=== PATIENT | male | born 1945 | race Caucasian/White ===

== ENCOUNTER 2019-12-07 08:03 | Emergency (ER) | payer BC, MEDICARE ==
[2019-12-07 08:21] VITALS: BP 101/66; PULSE 115
[2019-12-07] MEDS ORDERED: Sodium Chloride 0.9% 10 ML Syringe FLUSH PRN (09:35)
--- NOTE | 2019-12-07 09:35 | EDM.PDOC ---
ED HPI GENERAL MEDICAL PROBLEM - General Chief Complaint: Gastrointestinal Problem Stated Complaint: LOW BP Time Seen by Provider: 12/07/19 09:27 Source of Information: Reports: Patient, Family, RN Notes Reviewed History Limitations: Reports: No Limitations - History of Present Illness INITIAL COMMENTS - FREE TEXT/NARRATIVE: 74-year-old gentleman presents emergency department a complaint of black tarry stools, he is only had one event of black tarry stools this morning felt very lightheaded this morning systolic blood pressure was in the 70s, and he did have a couple events of low blood sugar over the last couple of days had a syncopal event yesterday states he did not injure himself. Has had a colonoscopy a couple years ago no EGD - Related Data Allergies Allergy/AdvReac Type Severity Reaction Status Date / Time Penicillins Allergy Cannot Verified 11/08/15 07:50 Remember Home Meds: Home Meds Lisinopril 20 mg PO DAILY 08/04/15 [History] metFORMIN [Glucophage] 1,000 mg PO DAILY 08/04/15 [History] tadalafiL [Cialis] 5 mg PO DAILY PRN 08/04/15 [History] Past Medical History HEENT History: Reports: Glaucoma, Hard of Hearing, Impaired Vision, Sinusitis Cardiovascular History: Reports: Hypertension Gastrointestinal History: Reports: GERD Genitourinary History: Reports: Other (See Below) Other Genitourinary History: Erectile dysfunction Musculoskeletal History: Reports: Back Pain, Chronic, Fracture, Gout Neurological History: Reports: Concussion Endocrine/Metabolic History: Reports: Diabetes, Type II, Obesity/BMI 30+ - Infectious Disease History Infectious Disease History: Reports: Chicken Pox, Measles, Mumps - Past Surgical History HEENT Surgical History: Reports: Naso-Sinus Surgery GI Surgical History: Reports: Colonoscopy Social & Family History - Tobacco Use Smoking Status *Q: Never Smoker - Caffeine Use Caffeine Use: Reports: Coffee - Recreational Drug Use Recreational Drug Use: No ED ROS GENERAL - Review of Systems Review Of Systems: See Below Constitutional: Reports: Weakness HEENT: Reports: No Symptoms Respiratory: Reports: No Symptoms Cardiovascular: Reports: Syncope GI/Abdominal: Reports: Black Stool : Reports: No Symptoms Musculoskeletal: Reports: No Symptoms ED EXAM, GI/ABD - Physical Exam Exam: See Below Exam Limited By: No Limitations General Appearance: Alert, WD/WN, No Apparent Distress Respiratory/Chest: No Respiratory Distress, Lungs Clear, Normal Breath Sounds, No Accessory Muscle Use, Chest Non-Tender Cardiovascular: Regular Rate, Rhythm, No Murmur GI/Abdominal Exam: Soft, Non-Tender Course - Vital Signs Last Recorded V/S: Last Vital Signs Temp 97.2 F 12/07/19 08:17 Pulse 115 H 12/07/19 08:17 Resp 20 12/07/19 08:17 BP 101/66 12/07/19 08:17 Pulse Ox 95 12/07/19 08:17 - Orders/Labs/Meds Orders: Active Orders 24 hr Category Date Time Status Peripheral IV Care [RC] . DIRECTED Care 12/07/19 09:35 Active Lactated Ringers [Ringers, Lactated] 1,000 ml Med 12/07/19 09:45 Active IV ASDIRECTED Sodium Chloride 0.9% [Saline Flush] Med 12/07/19 09:35 Active 10 ml FLUSH ASDIRECTED PRN Peripheral IV Insertion Adult [OM.PC] Urgent Oth 12/07/19 09:35 Ordered Medication Orders Lactated Ringer's (Ringers, Lactated) 1,000 mls @ 999 mls/hr IV ASDIRECTED MAGALY Last Admin: 12/07/19 09:55 Dose: 999 mls/hr Sodium Chloride (Saline Flush) 10 ml FLUSH ASDIRECTED PRN PRN Reason: Keep Vein Open Last Admin: 12/07/19 10:04 Dose: 10 ml Labs: Laboratory Tests 12/07/19 12/07/19 12/07/19 Range/Units 09:57 09:57 09:57 WBC 23.5 H (4.5-11.0) K/uL RBC 4.19 L (4.30-5.90) M/uL Hgb 13.0 D (12.0-15.0) g/dL Hct 39.3 L (40.0-54.0) % MCV 94 (80-98) fL MCH 31 (27-31) pg MCHC 33 (32-36) % Plt Count 125 L (150-400) K/uL Add Manual Diff Yes Neutrophils % (Manual) 50 (36-66) % Band Neutrophils % 41 H (5-11) % Lymphocytes % (Manual) 6 L (24-44) % Monocytes % (Manual) 2 (2-6) % Metamyelocytes % 1 % Sodium 137 L (140-148) mmol/L Potassium 5.5 H (3.6-5.2) mmol/L Chloride 101 (100-108) mmol/L Carbon Dioxide 24 (21-32) mmol/L Anion Gap 17.5 H (5.0-14.0) mmol/L BUN 49 H D (7-18) mg/dL Creatinine 3.2 H D (0.8-1.3) mg/dL Est Cr Clr Drug Dosing 24.21 mL/min Estimated GFR (MDRD) 19 L (>60) Glucose 191 H (74-106) mg/dL Lactic Acid 5.9 H (0.4-2.0) mmol/L Calcium 9.0 (8.5-10.1) mg/dL Total Bilirubin 4.5 H D (0.2-1.0) mg/dL AST 297 H D (15-37) U/L ALT 428 H (12-78) U/L Alkaline Phosphatase 152 H (46-116) U/L Lactate Dehydrogenase (85-227) U/L Total Protein 6.6 (6.4-8.2) g/dL Albumin 3.0 L (3.4-5.0) g/dL Globulin 3.6 H (2.3-3.5) g/dL Albumin/Globulin Ratio 0.8 L (1.2-2.2) Lipase 93 (73-393) U/L 12/07/19 Range/Units 11:11 WBC (4.5-11.0) K/uL RBC (4.30-5.90) M/uL Hgb (12.0-15.0) g/dL Hct (40.0-54.0) % MCV (80-98) fL MCH (27-31) pg MCHC (32-36) % Plt Count (150-400) K/uL Add Manual Diff Neutrophils % (Manual) (36-66) % Band Neutrophils % (5-11) % Lymphocytes % (Manual) (24-44) % Monocytes % (Manual) (2-6) % Metamyelocytes % % Sodium (140-148) mmol/L Potassium (3.6-5.2) mmol/L Chloride (100-108) mmol/L Carbon Dioxide (21-32) mmol/L Anion Gap (5.0-14.0) mmol/L BUN (7-18) mg/dL Creatinine (0.8-1.3) mg/dL Est Cr Clr Drug Dosing mL/min Estimated GFR (MDRD) (>60) Glucose (74-106) mg/dL Lactic Acid (0.4-2.0) mmol/L Calcium (8.5-10.1) mg/dL Total Bilirubin (0.2-1.0) mg/dL AST (15-37) U/L ALT (12-78) U/L Alkaline Phosphatase (46-116) U/L Lactate Dehydrogenase 280 H (85-227) U/L Total Protein (6.4-8.2) g/dL Albumin (3.4-5.0) g/dL Globulin (2.3-3.5) g/dL Albumin/Globulin Ratio (1.2-2.2) Lipase (73-393) U/L Meds: Medications Generic Name Dose Route Start Last Admin Trade Name Freq PRN Reason Stop Dose Admin Lactated Ringer's 1,000 mls @ 999 mls/hr 12/07/19 09:45 12/07/19 09:55 Ringers, Lactated IV 999 mls/hr ASDIRECTED MAGALY Administration Sodium Chloride 10 ml 12/07/19 09:35 12/07/19 10:04 Saline Flush FLUSH 10 ml ASDIRECTED PRN Administration Keep Vein Open Departure - Departure Time of Disposition: 13:31 Disposition: Home, Self-Care 01 Condition: Poor Clinical Impression: Black tarry stools - Discharge Information Referrals: Edgardo Red Sr, MD [Primary Care Provider] - Forms: ED Department Discharge Additional Instructions: Please return to the emergency department for worsening of symptoms, please report for an EGD with your primary care on Monday Sepsis Event Note - Evaluation Sepsis Screening Result: No Definite Risk - Focused Exam Vital Signs: Vital Signs Temp Pulse Resp BP Pulse Ox 12/07/19 08:17 97.2 F 115 H 20 101/66 95 Date Exam was Performed: 12/07/19 Time Exam was Performed: 13:27 - My Orders Last 24 Hours: My Active Orders 12/07/19 09:35 Peripheral IV Care [RC] . DIRECTED Sodium Chloride 0.9% [Saline Flush] 10 ml FLUSH ASDIRECTED PRN Peripheral IV Insertion Adult [OM.PC] Urgent 12/07/19 09:45 Lactated Ringers [Ringers, Lactated] 1,000 ml IV ASDIRECTED - Assessment/Plan Last 24 Hours: My Active Orders 12/07/19 09:35 Peripheral IV Care [RC] . DIRECTED Sodium Chloride 0.9% [Saline Flush] 10 ml FLUSH ASDIRECTED PRN Peripheral IV Insertion Adult [OM.PC] Urgent 12/07/19 09:45 Lactated Ringers [Ringers, Lactated] 1,000 ml IV ASDIRECTED Plan: Assessment Acuity = acute Site and laterality = black tarry stools Etiology = unknown etiology Manifestations = none Location of injury = Home Lab values = WBC elevated 23.5 consistent leukocytosis, hemoglobin normal at 13.0 potassium elevated 5.5 consistent hyperkalemia creatinine elevated 3.2 consistent with acute renal failure stage G4 lactic acid elevated 5.9 consistent lactic acidosis total bilirubin elevated 4.5 consistent with hyperbilirubinemia AST elevated to 97 and ALT elevated 428 consistent elevated liver enzymes LDH elevated at 280 and albumin low was 3.[address] scan shows a contracted gallbladder with possible stone but no thickening of the wall no pericolic stranding, no sign of inflammation Plan I discussed the case with his primary care physician with the hospitalist on- call and the surgeon on-call recommended admission with diagnostic laparoscopy to rule out gut, however family did not want to proceed with that wanted to go home felt his behavior was back to normal and they are going to follow-up with his primary care on Monday for an EGD. I also offered transfer to a larger facility for further evaluation and specialist consultation of which they declined. All 3 of the gentleman I consulted offered to provide admission family declined. This note was dictated using [employer] voice recognition software please call with any questions on syntax or grammar.
[2019-12-07] MEDS ORDERED: Lactated Ringers 1,000 ML IV SCH (09:45)
--- NOTE | 2019-12-07 12:21 | CRLCT ---
INDICATION: Elevated bilirubin TECHNIQUE: CT abdomen and pelvis acquired without IV contrast. COMPARISON: 11/08/2015 FINDINGS: Lower chest: Unremarkable. Liver: Unremarkable. Spleen: Unremarkable. Pancreas: Unremarkable. Gallbladder and bile ducts: Collapsed/contracted gallbladder. Small area of increased density in the dependent portion could represent calculi or sludge. No wall thickening/pericholecystic fluid/surrounding inflammatory change identified. Consider gallbladder ultrasound following overnight fast for better evaluation, if clinically indicated. There is no biliary enlargement identified. No obstructing lesion visualized by this technique. Kidneys: Unremarkable. Adrenal glands: Unremarkable. GI tract: Stable moderate-sized hiatal hernia. Diverticulosis of the colon, distributed along entire course but most concentrated at the sigmoid. No radiographic evidence of diverticulitis appendix is normal. Vascular structures: Negative. No sign of aneurysm. Lymph nodes: Unremarkable. Miscellaneous: Unremarkable. No free air or significant free fluid. Pelvic Organs: Prostatomegaly. Urinary bladder unremarkable. Bones: Slightly progressed loss of height L1 vertebral body, no new/significant retropulsion. IMPRESSION: 1. Contracted gallbladder, possible small calculi or sludge. No surrounding inflammatory change. Gallbladder ultrasound following overnight fast may be of benefit. No biliary enlargement/obstruction visualized. 2. Stable moderate-sized hiatal hernia, colonic diverticulosis. 3. Extensive prostatomegaly re-identified. 4. Progressive diminished height L1 vertebral body with possible subacute compression fracture inferior endplate. Consider MRI if clinically indicated/desired. Please note that all CT scans at this facility use dose modulation, iterative reconstruction, and/or weight-based dosing when appropriate to reduce radiation dose to as low as reasonably achievable. Dictated by Nic Acevedo MD @ Dec 07 2019 11:55AM Signed by Dr. Nic Acevedo @ Dec 07 2019 12:19PM
== END 2019-12-07 14:10 | disposition home or self-care (01) ==
LOC: JP.ED 08:03
DX: K92.1 Melena (principal); I10 Essential (primary) hypertension; E11.9 Type 2 diabetes mellitus without complications; E66.9 Obesity, unspecified; Z68.30 Body mass index [BMI] 30.0-30.9, adult; Z88.0 Allergy status to penicillin; Z79.84 Long term (current) use of oral hypoglycemic drugs; Z79.899 Other long term (current) drug therapy
CPT/HCPCS: 36415; 74176; 80053; 81001; 83605; 83615; 83690; 85025; 87040; 87086; 96360; 99283; 99284; J7120

== ENCOUNTER 2019-12-09 11:11 | Day surgery (SDC) | payer MEDICARE ==
[2019-12-09] MEDS ORDERED: Sodium Chloride 0.9% 1,000 ML IV SCH (11:30)
[2019-12-09] MEDS ORDERED: Propofol 200 MG/20 ML SDV IV ONE (12:15)
[2019-12-09] MEDS ORDERED: fentaNYL 100 MCG/2 ML SDV IV ONE (12:15)
[2019-12-09 13:51] VITALS: BP 149/91; PULSE 71
--- NOTE | 2019-12-09 14:58 | PROC ---
DATE OF PROCEDURE: 12/09/2019 SURGEON: Edgardo Red MD INDICATION: Shawn is a 74-year-old male who comes in for an esophagogastroduodenoscopy, as he has had black stools recently and mild abdominal pain. He was in the emergency room over the weekend. His white count was 22,000 and had black stools and was sent home, comes in for EGD. The risks and benefits were explained to the patient for an esophagogastroduodenoscopy. DESCRIPTION OF PROCEDURE: The Olympus 180 scope was used. Anesthesia was given by nurse pelletizer. The tube was placed into the pharynx and into the esophagus without difficulty and advanced under direct vision into the body of the stomach. Immediately, we noted a stomach ulcer with evidence of bleeding, but not actively at the present time. There was significant erythema and redness noted around the gastric ulcer site. The tube was then advanced into the duodenal bulb, which revealed severe erythema. The tube was advanced into the second part of the duodenum. Upon retraction of the tube, we noted duodenal erythema. Pictures were taken of this. The tube was brought back into the stomach. Retroflexion of the tube into the fundus revealed no abnormality of the fundus and again noted the ulceration. The air was withdrawn from the stomach, as well as fluid, and the tube was slowly retracted. The esophagus was unremarkable. The vocal cords moved symmetrically. No obvious pathology noted. The tube was removed. The patient tolerated the procedure well. PREOPERATIVE DIAGNOSIS: Gastrointestinal blood loss. POSTOPERATIVE DIAGNOSES: 1. Gastric ulcer with evidence of bleeding, but not at the present time. 2. Duodenal ulcerations with significant mucosal erythema. PLAN: We need to treat him and then we will re-evaluate him in one month or sooner if there is active bleeding. Edgardo Red MD /[id number]
== END 2019-12-09 13:55 | disposition home or self-care (01) ==
LOC: JP.SDS 11:11
PROVIDERS: ATTEND Internal Medicine
DX: K25.4 Chronic or unspecified gastric ulcer with hemorrhage (principal); K26.9 Duodenal ulcer, unspecified as acute or chronic, without hemorrhage or perforation; I10 Essential (primary) hypertension; K21.9 Gastro-esophageal reflux disease without esophagitis; E11.9 Type 2 diabetes mellitus without complications; E66.9 Obesity, unspecified; Z88.0 Allergy status to penicillin; Z68.29 Body mass index [BMI] 29.0-29.9, adult
CPT/HCPCS: 36415; 43235; 80053; 85027; J2704; J3010; J7030

== ENCOUNTER 2019-12-13 10:26 | Observation (INO) | payer MEDICARE ==
[2019-12-13] MEDS ORDERED: Sodium Chloride 0.9% 10 ML Syringe FLUSH PRN (10:42)
[2019-12-13] MEDS ORDERED: Dextrose 5%-0.9% NaCl 1,000 ML IV SCH (11:00)
[2019-12-13 11:31] VITALS: BP 110/48; PULSE 90
--- NOTE | 2019-12-13 13:28 | PCM.HP.2 ---
H&P History of Present Illness - General Date of Service: 12/13/19 Admit Problem/Dx: Admission Diagnosis/Problem Admission Diagnosis/Problem Abdominal pain Source of Information: Patient History Limitations: Reports: No Limitations - History of Present Illness Initial Comments - Free Text/Narative: 6 days ago Shawn was in the ER because of having black stools. He was found to have a Hb was 13.0 and had elevation of liver enzymes and elevated WBC. He was advise to be admitted but refused but said he would come back on Monday for an EGD to identify the source of the blood loss. On Monday he was found to have a gastric ulcer and duodenal erythema. Biopsy was not done but was started on Protonix and to have another scope in 1 month and to be seen in the clinic in one week or sooner if needed. His liver functions had improved and Hb was stable. Creatine was 3.1 He said he was feeling good and could increase his fluid intake.. He was to come back for repeat blood work Monday. Blood cultures were also done when he was in the ER on Monday. He came to the office today and looked sick and had yellow skin and was admitted. He had a CT of the abd on Monday which showed a contracted gallbladder and an ultrasound was advised. He was asymptomatic before the EGD and couldn't do the ultrasound after the EGD anyway because of air in the stomach after the procedure. Onset of Symptoms: Reports: Gradual Duration of Symptoms: Reports: Week(s): Location: Reports: Abdomen Associated Symptoms: Reports: Weakness - Related Data Allergies/Adverse Reactions: Allergies Allergy/AdvReac Type Severity Reaction Status Date / Time Penicillins Allergy Cannot Verified 12/09/19 11:34 Remember Home Medications: Home Meds Lisinopril 20 mg PO DAILY 08/04/15 [History] metFORMIN [Glucophage] 1,000 mg PO DAILY 08/04/15 [History] Indomethacin [Indocin] 50 mg PO ASDIRECTED PRN 12/09/19 [History] Rosuvastatin [Crestor] 10 mg PO DAILY 12/09/19 [History] Past Medical History HEENT History: Reports: Glaucoma, Hard of Hearing, Impaired Vision, Sinusitis Cardiovascular History: Reports: Hypertension Respiratory History: Reports: None Gastrointestinal History: Reports: GERD Genitourinary History: Reports: Other (See Below) Other Genitourinary History: Erectile dysfunction Musculoskeletal History: Reports: Back Pain, Chronic, Fracture, Gout Neurological History: Reports: Concussion Psychiatric History: Reports: Anxiety Endocrine/Metabolic History: Reports: Diabetes, Type II, Obesity/BMI 30+ Hematologic History: Reports: None Immunologic History: Reports: None Oncologic (Cancer) History: Reports: None Dermatologic History: Reports: None - Infectious Disease History Infectious Disease History: Reports: Chicken Pox - Past Surgical History Head Surgeries/Procedures: Reports: None HEENT Surgical History: Reports: Naso-Sinus Surgery Cardiovascular Surgical History: Reports: None Respiratory Surgical History: Reports: None GI Surgical History: Reports: Colonoscopy Male Surgical History: Reports: Circumcision Endocrine Surgical History: Reports: None Neurological Surgical History: Reports: None Musculoskeletal Surgical History: Reports: None Social & Family History - Family History Family Medical History: Noncontributory - Tobacco Use Smoking Status *Q: Former Smoker Used Tobacco, but Quit: Yes Month/Year Tobacco Last Used: 1979 - Caffeine Use Caffeine Use: Reports: Coffee - Alcohol Use Days Per Week of Alcohol Use: 2 Number of Drinks Per Day: 0 Total Drinks Per Week: 0 - Recreational Drug Use Recreational Drug Use: No H&P Review of Systems - Review of Systems: Review Of Systems: See Below General: Reports: Weakness, Fatigue, Weight Loss HEENT: Reports: No Symptoms Pulmonary: Reports: No Symptoms Cardiovascular: Reports: No Symptoms (Mild abdominal pain) Gastrointestinal: Reports: Other (Mild abdominal pain) Genitourinary: Reports: No Symptoms Musculoskeletal: Reports: No Symptoms Skin: Reports: Jaundice Psychiatric: Reports: No Symptoms Hematologic/Lymphatic: Reports: No Symptoms Immunologic: Reports: No Symptoms Exam - Exam Exam: See Below - Vital Signs Vital Signs: Last Vital Signs Temp 97.1 F 12/13/19 10:42 Pulse 90 12/13/19 10:42 Resp 16 12/13/19 10:42 BP 110/48 L 12/13/19 10:42 Pulse Ox 96 12/13/19 10:42 Weight: 242 lb - Exam General: Alert, Oriented, Mild Distress HEENT: PERRLA, Hearing Intact, Mucosa Moist & [place], Nares Patent, Normal Nasal Septum, Posterior Pharynx Clear, Conjunctiva Clear, EOMI, EACs Clear, TMs Clear Neck: Supple, Trachea Midline, 2 Lungs: Clear to Auscultation, Normal Respiratory Effort Cardiovascular: Regular Rate, Regular Rhythm GI/Abdominal Exam: Tender Back Exam: Other (No acute findings.) Extremities: Normal Inspection Peripheral Pulses: 1+: Radial (L), Radial (R) Skin: Other (icteric) Neurological: Cranial Nerves Intact Neuro Extensive - Mental Status: Alert, Oriented x3 Neuro Extensive - Motor, Sensory, Reflexes: CN II-XII Intact DTR: 1+: Bicep (L), Bicep (R) Psychiatric: Alert, Normal Affect, Labile Mood - Patient Data Lab Results Last 24 hrs: Laboratory Results - last 24 hr 12/13/19 12/13/19 12/13/19 Range/Units 10:58 10:58 12:23 WBC 33.9 H* (4.5-11.0) K/uL RBC 3.93 L (4.30-5.90) M/uL Hgb 12.3 (12.0-15.0) g/dL Hct 36.1 L (40.0-54.0) % MCV 92 (80-98) fL MCH 31 (27-31) pg MCHC 34 (32-36) % Plt Count 88 L (150-400) K/uL Add Manual Diff Yes Neutrophils % (Manual) 82 H (36-66) % Band Neutrophils % 10 (5-11) % Lymphocytes % (Manual) 5 L (24-44) % Monocytes % (Manual) 3 (2-6) % PT 16.2 H (9.5-12.0) sec INR 1.54 H (0.80-1.20) Sodium 136 L (140-148) mmol/L Potassium 4.2 (3.6-5.2) mmol/L Chloride 101 (100-108) mmol/L Carbon Dioxide 23 (21-32) mmol/L Anion Gap 16.2 H (5.0-14.0) mmol/L BUN 59 H (7-18) mg/dL Creatinine 3.6 H* (0.8-1.3) mg/dL Est Cr Clr Drug Dosing 20.93 mL/min Estimated GFR (MDRD) 17 L (>60) Glucose 114 H (74-106) mg/dL Calcium 8.7 (8.5-10.1) mg/dL Total Bilirubin 6.9 H D (0.2-1.0) mg/dL Direct Bilirubin 6.15 H (0.0-0.2) mg/dL AST 923 H D (15-37) U/L ALT 707 H (12-78) U/L Alkaline Phosphatase 373 H D (46-116) U/L Total Protein 6.4 (6.4-8.2) g/dL Albumin 2.6 L (3.4-5.0) g/dL Globulin 3.8 H (2.3-3.5) g/dL Albumin/Globulin Ratio 0.7 L (1.2-2.2) Result Diagrams: 12/13/19 10:58 12/13/19 10:58 Sepsis Event Note - Evaluation Sepsis Screening Result: No Definite Risk - Focused Exam Vital Signs: Vital Signs Temp Pulse Resp BP Pulse Ox 12/13/19 10:42 97.1 F 90 16 110/48 L 96 Date Exam was Performed: 12/13/19 Time Exam was Performed: 15:08 Problem List Initiated/Reviewed/Updated: Yes Orders Last 24hrs: Active Orders 24 hr Category Date Time Status Patient Status [ADT] Routine ADT 12/13/19 10:30 Active Vital Signs [RC] PFP Care 12/13/19 10:42 Active Abdomen Ltd [US] Routine Exams 12/13/19 10:42 Taken Abdomen wo Cont [MR] Stat Exams 12/13/19 12:56 Ordered CULTURE BLOOD [BC] Routine Lab 12/13/19 12:45 Received CULTURE BLOOD [BC] Routine Lab 12/13/19 12:55 Received UA W/MICROSCOPIC [URIN] Routine Lab 12/13/19 10:42 Ordered Dextrose 5%-0.9% NaCl [Dextrose 5%-Normal Saline] 1,000 Med 12/13/19 11:00 Active ml IV ASDIRECTED Sodium Chloride 0.9% [Saline Flush] Med 12/13/19 10:42 Active 10 ml FLUSH ASDIRECTED PRN Saline Lock Insert [OM.PC] Routine Oth 12/13/19 10:42 Ordered Sequential Compression Device [OM.PC] Routine Oth 12/13/19 10:42 Ordered Resuscitation Status Routine Resus Stat 12/13/19 10:42 Ordered Medication Orders Dextrose/Sodium Chloride (Dextrose 5%-Normal Saline) 1,000 mls @ 150 mls/hr IV ASDIRECTED MAGALY Sodium Chloride (Saline Flush) 10 ml FLUSH ASDIRECTED PRN PRN Reason: Keep Vein Open Assessment/Plan Comment:: Assessment/Plan: 1. Liver dysfunction. Blood work is pending and ultrasound pending. Will consult surgery or transfer out depending on the results of the tests that has been ordered. #2. Dehydration: Will rehydrate #3. DM II. Will follow blood sugars #4. Hypotension; normally he is hypotensive but now is dehydrated. #5. HLD: Not a problem presently.
[2019-12-13] MEDS ORDERED: LORazepam 2 MG/ML SDV IVPUSH ONE (14:00)
--- NOTE | 2019-12-13 14:52 | MR ---
Abdomen wo Cont MRI CLINICAL HISTORY: Abnormal liver function TECHNIQUE: T2 fat sat series was attempted. Findings: Patient was unable to hold breath and there is significant motion due to pain. Patient was also claustrophobic and terminated the exam IMPRESSION: Very limited axial images were obtained prior to patient terminating the study. It is nondiagnostic.
--- NOTE | 2019-12-13 15:19 | PCM.DCSUM1 ---
Discharge Summary - Hospital Course Brief History: 6 days ago Shawn was in the ER because of having black stools. He was found to have a Hb was 13.0 and had elevation of liver enzymes and elevated WBC. He was advise to be admitted but refused but said he would come back on Monday for an EGD to identify the source of the blood loss. On Monday he was found to have a gastric ulcer and duodenal erythema. Biopsy was not done but was started on Protonix and to have another scope in 1 month and to be seen in the clinic in one week or sooner if needed. His liver functions had improved and Hb was stable. Creatine was 3.1 He said he was feeling good and could increase his fluid intake.. He was to come back for repeat blood work Monday. Blood cultures were also done when he was in the ER on Monday. He came to the office today and looked sick and had yellow skin and was admitted. He had a CT of the abd on Monday which showed a contracted gallbladder and an ultrasound was advised. He was asymptomatic before the EGD and couldn't do the ultrasound after the EGD anyway because of air in the stomach after the procedure. Diagnosis: Stroke: No - Discharge Data Discharge Date: 12/13/19 Discharge Disposition: DC/Tfer to Acute Hospital 02 Condition: Good - Referral to Home Health Primary Care Physician: Edgardo Red Sr, MD - Patient Summary/Data Hospital Course: Ultrasound of the abd was done which showed a small gallbladder. CT done 6 days ago showed a contracted gallbladder. Liver functions are elevated AST 923 and ALT 707. Bili sky 6.9 and direct bili was 6.15/ INR 1.54, WBC 33.9. He was unable to tolerate a MRI. He is more than we can manage here. - Patient Instructions Diet: NPO Activity: Bedrest - Discharge Plan *COPY OF PRESCRIPTION DRUG MONITORING REPORT IN PATIENT DAYANA: No Home Medications: Home Meds Lisinopril 20 mg PO DAILY 08/04/15 [History] metFORMIN [Glucophage] 1,000 mg PO DAILY 08/04/15 [History] Indomethacin [Indocin] 50 mg PO ASDIRECTED PRN 12/09/19 [History] Rosuvastatin [Crestor] 10 mg PO DAILY 12/09/19 [History] - Discharge Summary/Plan Comment DC Time >30 min.: No Discharge Summary/Plan Comment: Transferred to [place] for continued care. Transferred by BLS - Review of Systems General: Reports: Weakness Gastrointestinal: Reports: Abdominal Pain Skin: Reports: Jaundice Neurological: Reports: No Symptoms, Weakness Psychiatric: Reports: No Symptoms - Patient Data Vitals - Most Recent: Last Vital Signs Temp 97.1 F 12/13/19 10:42 Pulse 90 12/13/19 10:42 Resp 16 12/13/19 10:42 BP 110/48 L 12/13/19 10:42 Pulse Ox 96 12/13/19 10:42 Weight - Most Recent: 242 lb Lab Results - Last 24 hrs: Laboratory Results - last 24 hr 12/13/19 12/13/19 12/13/19 Range/Units 10:58 10:58 12:23 WBC 33.9 H* (4.5-11.0) K/uL RBC 3.93 L (4.30-5.90) M/uL Hgb 12.3 (12.0-15.0) g/dL Hct 36.1 L (40.0-54.0) % MCV 92 (80-98) fL MCH 31 (27-31) pg MCHC 34 (32-36) % Plt Count 88 L (150-400) K/uL Add Manual Diff Yes Neutrophils % (Manual) 82 H (36-66) % Band Neutrophils % 10 (5-11) % Lymphocytes % (Manual) 5 L (24-44) % Monocytes % (Manual) 3 (2-6) % PT 16.2 H (9.5-12.0) sec INR 1.54 H (0.80-1.20) Sodium 136 L (140-148) mmol/L Potassium 4.2 (3.6-5.2) mmol/L Chloride 101 (100-108) mmol/L Carbon Dioxide 23 (21-32) mmol/L Anion Gap 16.2 H (5.0-14.0) mmol/L BUN 59 H (7-18) mg/dL Creatinine 3.6 H* (0.8-1.3) mg/dL Est Cr Clr Drug Dosing 20.93 mL/min Estimated GFR (MDRD) 17 L (>60) Glucose 114 H (74-106) mg/dL Calcium 8.7 (8.5-10.1) mg/dL Total Bilirubin 6.9 H D (0.2-1.0) mg/dL Direct Bilirubin 6.15 H (0.0-0.2) mg/dL AST 923 H D (15-37) U/L ALT 707 H (12-78) U/L Alkaline Phosphatase 373 H D (46-116) U/L Total Protein 6.4 (6.4-8.2) g/dL Albumin 2.6 L (3.4-5.0) g/dL Globulin 3.8 H (2.3-3.5) g/dL Albumin/Globulin Ratio 0.7 L (1.2-2.2) Med Orders - Current: Current Medications Dextrose/Sodium Chloride (Dextrose 5%-Normal Saline) 1,000 mls @ 150 mls/hr IV ASDIRECTED MAGALY Sodium Chloride (Saline Flush) 10 ml FLUSH ASDIRECTED PRN PRN Reason: Keep Vein Open Discontinued Medications Lorazepam (Ativan) 0.5 mg IVPUSH ONETIME ONE Stop: 12/13/19 14:01 Last Admin: 12/13/19 14:01 Dose: 0.5 mg - Exam General: Reports: Alert, Oriented HEENT: Reports: Pupils Equal, Pupils Reactive, EOMI, Mucous Membr. Moist/[place] Neck: Reports: Supple Lungs: Reports: Clear to Auscultation, Normal Respiratory Effort Cardiovascular: Reports: Regular Rate, Regular Rhythm GI/Abdominal Exam: Tender Skin: Reports: Warm, Dry, Intact Psy/Mental Status: Reports: Alert, Normal Affect, Normal Mood
--- NOTE | 2019-12-13 15:43 | US ---
Abdomen Ltd CLINICAL HISTORY: Abnormal LFTs COMPARISON: Noncontrast CT abdomen 12/07/2019. TECHNIQUE: Real-time images were obtained through the right upper quadrant. FINDINGS: There was a limited due to acoustic window. The liver is free of mass or biliary dilatation. Parenchymal echogenicity is relatively homogeneous. Flow within the portal venous system is not definitively identified on Doppler. The gallbladder is contracted. There is no wall thickening. The common bile duct measures 9 mm. The pancreas is obscured. The right kidney shows no mass or hydronephrosis. The IVC is normal. IMPRESSION: Limited acoustic window Portable vessels are not well seen and flow cannot be documented in the portal vein Contracted gallbladder without significant biliary dilatation. Patient has very poor renal function and CT contrast is not recommended. MR abdomen without contrast may help to define the portal system.
== END 2019-12-13 17:03 ==
LOC: UNDOADMIN 10:26 → JP.MS 10:26 → UNDODISIN 17:03
PROVIDERS: ADMIT Internal Medicine; ATTEND Internal Medicine
DX: K76.89 Other specified diseases of liver (principal); K82.0 Obstruction of gallbladder; E86.0 Dehydration; E11.9 Type 2 diabetes mellitus without complications; I95.9 Hypotension, unspecified; E78.5 Hyperlipidemia, unspecified; E66.9 Obesity, unspecified; K21.9 Gastro-esophageal reflux disease without esophagitis; F41.9 Anxiety disorder, unspecified; Z88.0 Allergy status to penicillin; Z79.84 Long term (current) use of oral hypoglycemic drugs; Z79.899 Other long term (current) drug therapy; Z87.891 Personal history of nicotine dependence; Z68.31 Body mass index [BMI] 31.0-31.9, adult
CPT/HCPCS: 36415; 74181; 76705; 80053; 81001; 82248; 85025; 85610; 87040; 87077; 87186; 96374; G0378; J2060

== ENCOUNTER 2020-02-04 22:04 | Emergency (ER) | payer MEDICARE ==
[2020-02-04 22:26] VITALS: BP 136/72; PULSE 122
--- NOTE | 2020-02-04 22:29 | EDM.PDOC ---
ED HPI GENERAL MEDICAL PROBLEM - General Chief Complaint: Gastrointestinal Problem Stated Complaint: BACK PAIN,TREMORS Time Seen by Provider: 02/04/20 22:46 Source of Information: Reports: Patient History Limitations: Reports: No Limitations - History of Present Illness INITIAL COMMENTS - FREE TEXT/NARRATIVE: 74 years old male patient presented to the ER with a chief complaint of nausea vomiting and diarrhea. Started couple hours ago. One episode of loose stool, vomited once. Denies any blood in the urine or stool. Denies any recent antibiotic use. No suspicious food. No recent travel. No sick contact. Denies any abdominal pain. Denies any fever. Denies any chest pain or shortness breath. Denies any urinary symptom. Had some mild discomfort of his lower back, currently resolved. Lower Back Pain Score (Numeric/FACES): 3 - Related Data Allergies Allergy/AdvReac Type Severity Reaction Status Date / Time Penicillins Allergy Cannot Verified 02/04/20 22:29 Remember Home Meds: Home Meds Lisinopril 20 mg PO DAILY 08/04/15 [History] metFORMIN [Glucophage] 1,000 mg PO DAILY 08/04/15 [History] Rosuvastatin [Crestor] 10 mg PO DAILY 12/09/19 [History] Past Medical History HEENT History: Reports: Glaucoma, Hard of Hearing, Impaired Vision, Sinusitis Cardiovascular History: Reports: Hypertension Respiratory History: Reports: None Gastrointestinal History: Reports: GERD Genitourinary History: Reports: Other (See Below) Other Genitourinary History: Erectile dysfunction Musculoskeletal History: Reports: Back Pain, Chronic, Fracture, Gout Neurological History: Reports: Concussion Psychiatric History: Reports: Anxiety Endocrine/Metabolic History: Reports: Diabetes, Type II, Obesity/BMI 30+ Hematologic History: Reports: None Immunologic History: Reports: None Oncologic (Cancer) History: Reports: None Dermatologic History: Reports: None - Infectious Disease History Infectious Disease History: Reports: Chicken Pox - Past Surgical History Head Surgeries/Procedures: Reports: None HEENT Surgical History: Reports: Naso-Sinus Surgery Cardiovascular Surgical History: Reports: None Respiratory Surgical History: Reports: None GI Surgical History: Reports: Colonoscopy Male Surgical History: Reports: Circumcision Endocrine Surgical History: Reports: None Neurological Surgical History: Reports: None Musculoskeletal Surgical History: Reports: None Social & Family History - Family History Family Medical History: Noncontributory - Caffeine Use Caffeine Use: Reports: Coffee ED ROS GENERAL - Review of Systems Review Of Systems: Comprehensive ROS is negative, except as noted in HPI. ED EXAM, GI/ABD - Physical Exam Exam: See Below Exam Limited By: No Limitations General Appearance: Alert, WD/WN, No Apparent Distress Eyes: Bilateral: Normal Appearance, EOMI Nose: Normal Inspection, Normal Mucosa, No Blood Head: Atraumatic, Normocephalic Neck: Normal Inspection, Supple, Non-Tender, Full Range of Motion Respiratory/Chest: No Respiratory Distress, Lungs Clear, Normal Breath Sounds, No Accessory Muscle Use, Chest Non-Tender Cardiovascular: Normal Peripheral Pulses, Regular Rate, Rhythm, No Edema, No Gallop, No JVD, No Murmur, No Rub GI/Abdominal Exam: Normal Bowel Sounds, Soft, Non-Tender, No Organomegaly, No Distention, No Abnormal Bruit, No Mass, Pelvis Stable. No: Guarding, Rigid, Rebound Extremities: Normal Inspection, Normal Range of Motion, Non-Tender, Normal Capillary Refill, No Pedal Edema Neurological: Alert, Oriented, CN II-XII Intact, Normal Cognition, Normal Gait, Normal Reflexes, No Motor/Sensory Deficits Skin Exam: Warm, Dry, Intact, Normal Color, No Rash Course - Vital Signs Last Recorded V/S: Last Vital Signs Temp 36.3 C 02/04/20 22:24 Pulse 122 H 02/04/20 22:24 Resp 16 02/04/20 22:24 BP 136/72 02/04/20 22:24 Pulse Ox 95 02/04/20 22:24 - Orders/Labs/Meds Orders: Active Orders 24 hr Category Date Time Status Abdomen Pelvis w Cont [CT] Stat Exams 02/04/20 23:33 Ordered Sodium Chloride 0.9% [Normal Saline] 1,000 ml Med 02/04/20 22:45 Active IV .BOLUS Medication Orders Sodium Chloride (Normal Saline) 1,000 mls @ 999 mls/hr IV .BOLUS STA Stop: 02/04/20 23:45 Last Admin: 02/04/20 22:58 Dose: 999 mls/hr Documented by: DION Labs: Laboratory Tests 02/04/20 02/04/20 02/04/20 Range/Units 22:43 22:56 22:56 WBC 13.6 H (4.5-11.0) K/uL RBC 4.29 L (4.30-5.90) M/uL Hgb 13.0 (12.0-15.0) g/dL Hct 39.5 L (40.0-54.0) % MCV 92 (80-98) fL MCH 30 (27-31) pg MCHC 33 (32-36) % Plt Count 130 L (150-400) K/uL Neut % (Auto) 88 H (36-66) % Lymph % (Auto) 5 L (24-44) % [place] % (Auto) 6 (2-6) % Eos % (Auto) 2 (2-4) % Baso % (Auto) 0 (0-1) % Sodium 138 L (140-148) mmol/L Potassium 4.3 (3.6-5.2) mmol/L Chloride 104 (100-108) mmol/L Carbon Dioxide 23 (21-32) mmol/L Anion Gap 15.3 H (5.0-14.0) mmol/L BUN 23 H D (7-18) mg/dL Creatinine 1.4 H D (0.8-1.3) mg/dL Est Cr Clr Drug Dosing 55.33 mL/min Estimated GFR (MDRD) 50 L (>60) Glucose 178 H (74-106) mg/dL Lactic Acid (0.4-2.0) mmol/L Calcium 9.3 (8.5-10.1) mg/dL Total Bilirubin 0.6 D (0.2-1.0) mg/dL AST 34 D (15-37) U/L ALT 45 D (12-78) U/L Alkaline Phosphatase 112 (46-116) U/L Total Protein 7.2 (6.4-8.2) g/dL Albumin 3.6 (3.4-5.0) g/dL Globulin 3.6 H (2.3-3.5) g/dL Albumin/Globulin Ratio 1.0 L (1.2-2.2) Lipase 237 (73-393) U/L Urine Color [place] A (YELLOW) Urine Appearance Clear (CLEAR) Urine pH 5.5 (5.0-8.0) Ur Specific [place] 1.025 (1.008-1.030) Urine Protein Negative (NEGATIVE) mg/dL Urine Glucose (UA) Negative (NEGATIVE) mg/dL Urine Ketones Negative (NEGATIVE) mg/dL Urine Occult Blood Negative (NEGATIVE) Urine Nitrite Negative (NEGATIVE) Urine Bilirubin Negative (NEGATIVE) Urine Urobilinogen 0.2 (0.2-1.0) EU/dL Ur Leukocyte Esterase Negative (NEGATIVE) Urine RBC 0-5 (0-5) Urine WBC Not seen (0-5) Ur Epithelial Cells Not seen Amorphous Sediment Few Urine Bacteria Not seen Urine Mucus Not seen 02/04/20 Range/Units 22:56 WBC (4.5-11.0) K/uL RBC (4.30-5.90) M/uL Hgb (12.0-15.0) g/dL Hct (40.0-54.0) % MCV (80-98) fL MCH (27-31) pg MCHC (32-36) % Plt Count (150-400) K/uL Neut % (Auto) (36-66) % Lymph % (Auto) (24-44) % [place] % (Auto) (2-6) % Eos % (Auto) (2-4) % Baso % (Auto) (0-1) % Sodium (140-148) mmol/L Potassium (3.6-5.2) mmol/L Chloride (100-108) mmol/L Carbon Dioxide (21-32) mmol/L Anion Gap (5.0-14.0) mmol/L BUN (7-18) mg/dL Creatinine (0.8-1.3) mg/dL Est Cr Clr Drug Dosing mL/min Estimated GFR (MDRD) (>60) Glucose (74-106) mg/dL Lactic Acid 2.0 (0.4-2.0) mmol/L Calcium (8.5-10.1) mg/dL Total Bilirubin (0.2-1.0) mg/dL AST (15-37) U/L ALT (12-78) U/L Alkaline Phosphatase (46-116) U/L Total Protein (6.4-8.2) g/dL Albumin (3.4-5.0) g/dL Globulin (2.3-3.5) g/dL Albumin/Globulin Ratio (1.2-2.2) Lipase (73-393) U/L Urine Color (YELLOW) Urine Appearance (CLEAR) Urine pH (5.0-8.0) Ur Specific [place] (1.008-1.030) Urine Protein (NEGATIVE) mg/dL Urine Glucose (UA) (NEGATIVE) mg/dL Urine Ketones (NEGATIVE) mg/dL Urine Occult Blood (NEGATIVE) Urine Nitrite (NEGATIVE) Urine Bilirubin (NEGATIVE) Urine Urobilinogen (0.2-1.0) EU/dL Ur Leukocyte Esterase (NEGATIVE) Urine RBC (0-5) Urine WBC (0-5) Ur Epithelial Cells Amorphous Sediment Urine Bacteria Urine Mucus Meds: Medications Generic Name Dose Route Start Last Admin Trade Name Freq PRN Reason Stop Dose Admin Sodium Chloride 1,000 mls @ 999 mls/hr 02/04/20 22:45 02/04/20 22:58 Normal Saline IV 02/04/20 23:45 999 mls/hr .BOLUS STA Administration Discontinued Medications Generic Name Dose Route Start Last Admin Trade Name Freq PRN Reason Stop Dose Admin Ondansetron HCl 4 mg 02/04/20 22:45 02/04/20 23:03 Zofran IVPUSH 02/04/20 22:46 4 mg ONETIME ONE Administration - Re-Assessments/Exams Free Text/Narrative Re-Assessment/Exam: 02/04/20 23:45 Patient was seen and examined shortly after arrival. Stable. Given 1 L normal saline bolus. 4 mg IV Zofran. Lab reviewed. No significant acute abnormalities except for slightly elevated white count. Broad differential was considered including but not limited to acute pancreatitis, acute cholecystitis, acute colitis, C. difficile, acute appendicitis, bowel obstruction, acute gastroenteritis, acute cystitis, pyelonephritis, etc. This is most likely acute gastroenteritis. I did discussed with the patient the option of doing CT abdomen and pelvis to rule out any serious pathology. Patient refused CT abdomen and pelvis. Stated his feeling well. Denies any abdominal pain. Nausea resolved. Feeling well. Hemodynamically stable. Afebrile. Abdominal exam completely benign. Advised to rest and stay hydrated. Clear liquids tonight. Follow-up with his primary doctor tomorrow for reevaluation. Come back for any concern or if symptom comes back. [facility] agrees with the plan. Stable for discharge. Departure - Departure Time of Disposition: 23:43 Disposition: Home, Self-Care 01 Condition: Good Clinical Impression: Gastroenteritis, Gastroenteritis - Discharge Information Referrals: Edgrado Red Sr, MD [Primary Care Provider] - Forms: ED Department Discharge Additional Instructions: Advised to rest and stay hydrated. Clear liquids tonight. Follow-up with his primary doctor tomorrow for reevaluation. Come back for any concern or if symptom comes back. [facility] agrees with the plan. Sepsis Event Note (ED) - Evaluation Sepsis Screening Result: No Definite Risk - Focused Exam Vital Signs: Vital Signs Temp Pulse Resp BP Pulse Ox 02/04/20 22:24 36.3 C 122 H 16 136/72 95 - My Orders Last 24 Hours: My Active Orders 02/04/20 22:45 Sodium Chloride 0.9% [Normal Saline] 1,000 ml IV .BOLUS 02/04/20 23:33 Abdomen Pelvis w Cont [CT] Stat - Assessment/Plan Last 24 Hours: My Active Orders 02/04/20 22:45 Sodium Chloride 0.9% [Normal Saline] 1,000 ml IV .BOLUS 02/04/20 23:33 Abdomen Pelvis w Cont [CT] Stat Plan: Advised to rest and stay hydrated. Clear liquids tonight. Follow-up with his primary doctor tomorrow for reevaluation. Come back for any concern or if symptom comes back. Vision agrees with the plan.
[2020-02-04] MEDS ORDERED: Ondansetron 4 MG/2 ML SDV IVPUSH ONE (22:45)
[2020-02-04] MEDS ORDERED: Sodium Chloride 0.9% 1,000 ML IV STA (22:45)
== END 2020-02-05 00:07 | disposition home or self-care (01) ==
LOC: JP.ED 22:04
DX: K52.9 Noninfective gastroenteritis and colitis, unspecified (principal); E11.9 Type 2 diabetes mellitus without complications; I10 Essential (primary) hypertension; E66.9 Obesity, unspecified; Z68.29 Body mass index [BMI] 29.0-29.9, adult; Z88.0 Allergy status to penicillin; Z79.899 Other long term (current) drug therapy; Z79.84 Long term (current) use of oral hypoglycemic drugs
CPT/HCPCS: 36415; 80053; 81001; 83605; 83690; 85025; 96361; 96374; 99284; J2405; J7030